=== PATIENT | male | born 2000 | race Caucasian/White ===

== ENCOUNTER 2023-05-31 11:24 | Emergency (ER) | payer OTHER ==
[~2023-05-31] VITALS: Ht 180.3 cm; Wt 90.9 kg
[2023-05-31 11:33] VITALS: BP 109/57; PULSE 74; RESP 16; TEMP 97.8
== END 2023-05-31 12:50 | disposition home or self-care (01) ==
LOC: EMS 11:24
DX: H61.22 Impacted cerumen, left ear (principal)
CPT/HCPCS: 69210; 99284; Z7502